=== PATIENT | male | born 2000 | race Caucasian/White ===

== ENCOUNTER 2021-04-13 13:18 | Emergency (ER) | payer OTHER ==
[2021-04-13] MEDS ORDERED: AUGMENTIN 875-1 EACH PO (14:35)
== END 2021-04-13 15:30 | disposition home or self-care (01) ==
LOC: ER1 13:18
DX: S01.111A Laceration without foreign body of right eyelid and periocular area, initial encounter (principal); W54.0XXA Bitten by dog, initial encounter
CPT/HCPCS: 12002; 99283